=== PATIENT | female | born 1955 | race Caucasian/White ===

== ENCOUNTER 2020-12-28 23:22 | Inpatient (IN) ==
[2020-12-29] MEDS ORDERED: Naloxone 0.4 MG/ML INJ IVP PRN (01:59)
[2020-12-29] MEDS ORDERED: Melatonin 3 MG TABLET PO PRN (02:04)
[2020-12-29] MEDS ORDERED: 0.9 % Sodium Chloride 1,000 ML IVC ONE (02:46)
[2020-12-29] MEDS ORDERED: D5% in Water 1,000 ML IVC PRN (02:54)
[2020-12-29] MEDS ORDERED: *HR* Dextrose 50 % in Water (Vial) 50 ML VIAL IVP PRN (02:54)
[2020-12-29] MEDS ORDERED: Dextrose Gel 15 GM/37.5 ML TUBE PO PRN ×2 (02:54)
[2020-12-29] MEDS: Morphine Sulfate 2 MG/ML SYRINGE IVP PRN ×5 (03:39→22:49)
[2020-12-29] MEDS: Nicotine 21 MG PATCH.TD24 TD SCH ×2 (03:42→08:53)
[2020-12-29 03:45] LABS: Basophils # 0.1 K/mcL (0.0-0.2); Basophils % 0.5 %; Eosinophils # 0.4 K/mcL (0.0-0.6); Eosinophils % 3.9 %; Hemoglobin 13.7 g/dL (11.5-15.4); Immature Granulocytes % 0.4 % (0-4); Lymphocytes # 2.6 K/mcL (0.6-4.6); Lymphocytes % 25.2 %; Mean Corpuscular HGB Conc 34.3 g/dL (31.6-35.5); Mean Corpuscular Hemoglobin 32.4 pg (28.0-33.3); Mean Corpuscular Volume 94.6 fL (83.0-100.0); Mean Platelet Volume 10.9 fL (9.4-12.4); Monocytes # 0.9 K/mcL (0.0-1.3); Monocytes % 8.3 %; Neutrophils # 6.4 K/mcL (1.6-8.9); Platelet Count 252 K/mcL (140-400); Red Blood Count 4.23 M/mcL (3.82-4.97); Red Cell Distribution Width 13.2 % (11.5-14.5); Segmented Neutrophils % 61.7 %; White Blood Count 10.4 K/mcL (4.3-11.1)
[2020-12-29 03:51] LABS: INR 3.2; Prothrombin Time 35.7 Seconds (9.4-12.1)
[2020-12-29 03:54] LABS: Activated Partial Thrombo Time 42.8 Seconds (26.0-36.0)
[2020-12-29 04:00] LABS: Alanine Aminotransferase 16 Units/L (7-52); Albumin 4.1 g/dL (3.5-5.7); Albumin/Globulin Ratio 1.7 (1.1-2.2); Alkaline Phosphatase 47 Units/L (34-104); Aspartate Amino Transferase 17 Units/L (13-39); BUN/Creatinine Ratio 19 (6-26); Bilirubin,Total 0.3 mg/dL (0.3-1.0); Blood Urea Nitrogen 10 mg/dL (8-23); Calcium 8.8 mg/dL (8.6-10.3); Carbon Dioxide 27 mEq/L (23-29); Chloride 108 mEq/L (98-107); Globulin 2.4 g/dL (2.4-3.5); Glucose 93 mg/dL (70-105); Magnesium 1.5 mg/dL (1.6-2.6); Osmolality,Calculated 289 (280-300); Phosphorous 3.7 mg/dL (2.7-4.5); Potassium 3.9 mEq/L (3.5-5.1); Sodium 140 mEq/L (136-145); Total Protein 6.5 g/dL (6.4-8.9); eGFR For African Americans > 60 (> 60); eGFR For Non-African Americans > 60 (> 60)
[2020-12-29] MEDS: Insulin LISPRO 300 UNITS/3 ML VIAL SUBQ SCH ×3 (06:28→20:26)
[2020-12-29] MEDS ORDERED: *HR* Phytonadione 10 MG/ML AMPUL SQ ONE (08:30)
[2020-12-29] MEDS: MetroNIDAZOLE 500 MG/100 ML 500 MG/100 ML BAG IVPB SCH ×3 (11:08→23:31)
[2020-12-29] MEDS ORDERED: *HR* Heparin 5,000 UNIT/ML VIAL IVP PRN ×2 (12:52)
[2020-12-29] MEDS ORDERED: Heparin 25,000UNIT/250ML 1/2NS 25,000 UNIT/250 ML IV.SOLN IVC SCH (13:00)
[2020-12-29 13:25] LABS: Hematocrit 40.9 % (35.3-44.9); Hemoglobin 13.9 g/dL (11.5-15.4); Mean Corpuscular Hemoglobin 32.4 pg (28.0-33.3); Mean Corpuscular Volume 95.3 fL (83.0-100.0); Mean Platelet Volume 10.7 fL (9.4-12.4); Platelet Count 206 K/mcL (140-400); Red Blood Count 4.29 M/mcL (3.82-4.97); Red Cell Distribution Width 13.2 % (11.5-14.5); White Blood Count 8.5 K/mcL (4.3-11.1)
[2020-12-29 13:32] LABS: Heparin anti-factor XA UFH 0.04 IU/mL (0.30-0.70)
[2020-12-29 13:33] LABS: INR 2.3; Prothrombin Time 26.5 Seconds (9.4-12.1)
[2020-12-29] MEDS: Pyridoxine (B-6) 50 MG TABLET PO SCH (20:36)
[2020-12-29] MEDS: Budesonide/Formoterol 160/4.5 1 PUFF INH IH SCH (20:39)
[2020-12-29] MEDS ORDERED: Gabapentin 400 MG CAPSULE PO SCH (21:00)
[2020-12-29] MEDS: Ondansetron 4 MG/2 ML VIAL IVP PRN (22:06)
[2020-12-30 03:31] LABS: Heparin anti-factor XA UFH 0.4 IU/mL (0.30-0.70)
[2020-12-30 03:32] LABS: INR 1.7; Prothrombin Time 19.2 Seconds (9.4-12.1)
[2020-12-30] MEDS: Insulin LISPRO 300 UNITS/3 ML VIAL SUBQ SCH ×3 (03:41→18:24)
[2020-12-30 03:43] LABS: Alanine Aminotransferase 26 Units/L (7-52); Albumin 4.1 g/dL (3.5-5.7); Albumin/Globulin Ratio 1.7 (1.1-2.2); Alkaline Phosphatase 46 Units/L (34-104); Aspartate Amino Transferase 44 Units/L (13-39); BUN/Creatinine Ratio 14 (6-26); Bilirubin,Total 0.4 mg/dL (0.3-1.0); Blood Urea Nitrogen 8 mg/dL (8-23); Calcium 8.5 mg/dL (8.6-10.3); Carbon Dioxide 23 mEq/L (23-29); Chloride 106 mEq/L (98-107); Globulin 2.4 g/dL (2.4-3.5); Glucose 93 mg/dL (70-105); Magnesium 1.6 mg/dL (1.6-2.6); Osmolality,Calculated 282 (280-300); Potassium 4.2 mEq/L (3.5-5.1); Sodium 137 mEq/L (136-145); Total Protein 6.5 g/dL (6.4-8.9); eGFR For African Americans > 60 (> 60); eGFR For Non-African Americans > 60 (> 60)
[2020-12-30] MEDS: Budesonide/Formoterol 160/4.5 1 PUFF INH IH SCH ×2 (07:24→21:45)
[2020-12-30] MEDS: MetroNIDAZOLE 500 MG/100 ML 500 MG/100 ML BAG IVPB SCH ×3 (07:28→23:50)
[2020-12-30] MEDS ORDERED: Pregabalin 75 MG CAPSULE PO ONE ×2 (07:46→12:18)
[2020-12-30] MEDS ORDERED: *HR* Labetalol 20 MG/4 ML SYRINGE IVP PRN ×2 (07:46→12:18)
[2020-12-30] MEDS ORDERED: Acetaminophen IV 1,000 MG/100 ML BAG IVPB ONE ×3 (07:46→12:18)
[2020-12-30] MEDS ORDERED: *HR* OxyCODONE Immed Rel 5 MG TABLET PO PRN ×4 (07:46→13:20)
[2020-12-30] MEDS ORDERED: Famotidine 20 MG/2 ML VIAL IVP ONE ×2 (07:46→12:18)
[2020-12-30] MEDS ORDERED: Morphine Sulfate 2 MG/ML SYRINGE IVP PRN ×3 (07:47→12:18)
[2020-12-30] MEDS ORDERED: Lidocaine -MPF 4% 5 ML AMPUL ONE (08:20)
[2020-12-30] MEDS ORDERED: *HR* Midazolam HCl 2 MG/2 ML VIAL ONE (08:24)
[2020-12-30] MEDS ORDERED: *HR* FentaNYL (PF) 100 MCG/2 ML VIAL ONE (08:24)
[2020-12-30] MEDS ORDERED: *HR* Propofol 200 MG/20 ML VIAL IVP ONE (08:25)
[2020-12-30] MEDS ORDERED: Lidocaine -MPF 2% 2 ML VIAL ONE ×2 (08:26→08:30)
[2020-12-30] MEDS ORDERED: *HR* Succinylcholine 200 MG/10 ML VIAL IVP ONE (08:30)
[2020-12-30] MEDS ORDERED: *HR* Rocuronium Bromide 50 MG/5 ML VIAL ONE (08:30)
[2020-12-30] MEDS ORDERED: Ondansetron 4 MG/2 ML VIAL ONE (08:30)
[2020-12-30] MEDS ORDERED: Isovue-300 50ML VIAL ONE (08:47)
[2020-12-30] MEDS ORDERED: lisinopriL 5 MG TABLET PO SCH (09:00)
[2020-12-30] MEDS ORDERED: atenoloL 25 MG TABLET PO SCH (09:00)
[2020-12-30] MEDS ORDERED: Gabapentin 400 MG CAPSULE PO SCH ×2 (09:00→12:00)
[2020-12-30] MEDS ORDERED: Loratadine 10 MG TABLET PO SCH (09:00)
[2020-12-30] MEDS ORDERED: cefOXitin 1,000 MG, 0.9 % Sodium Chloride 1,000 ML IR ONE (09:00)
[2020-12-30] MEDS ORDERED: Famotidine 20 MG/2 ML VIAL ONE (09:12)
[2020-12-30] MEDS ORDERED: EPHEDrine 50 MG/ML VIAL ONE (09:40)
[2020-12-30] MEDS ORDERED: Sugammadex Sodium 200 MG/2 ML VIAL IV ONE (10:17)
[2020-12-30] MEDS ORDERED: Ringers Solution, Lactated 1,000 ML ONE (10:52)
[2020-12-30] MEDS: Ondansetron 4 MG/2 ML VIAL IVP PRN ×3 (11:11→23:45)
[2020-12-30] MEDS ORDERED: Ondansetron 4 MG/2 ML VIAL IVP PRN (12:18)
[2020-12-30] MEDS ORDERED: Dextrose Gel 15 GM/37.5 ML TUBE PO PRN ×2 (12:18)
[2020-12-30] MEDS ORDERED: *HR* Dextrose 50 % in Water (Vial) 50 ML VIAL IVP PRN (12:18)
[2020-12-30] MEDS ORDERED: Naloxone 0.4 MG/ML INJ IVP PRN (12:18)
[2020-12-30] MEDS ORDERED: D5% in Water 1,000 ML IVC PRN (12:18)
[2020-12-30] MEDS ORDERED: *HR* Heparin 5,000 UNIT/ML VIAL IVP PRN ×2 (12:18)
[2020-12-30] MEDS: Heparin 25,000UNIT/250ML 1/2NS 25,000 UNIT/250 ML IV.SOLN IVC SCH (13:19)
[2020-12-30] MEDS: Melatonin 3 MG TABLET PO PRN (21:08)
[2020-12-30] MEDS: Gabapentin 400 MG CAPSULE PO SCH (21:08)
[2020-12-30] MEDS: Pyridoxine (B-6) 50 MG TABLET PO SCH (21:10)
[2020-12-31] MEDS: Insulin LISPRO 300 UNITS/3 ML VIAL SUBQ SCH ×6 (01:07→19:28)
[2020-12-31 01:29] LABS: INR 1.5
[2020-12-31 01:30] LABS: Heparin anti-factor XA UFH 0.52 IU/mL (0.30-0.70)
[2020-12-31] MEDS: Budesonide/Formoterol 160/4.5 1 PUFF INH IH SCH ×2 (07:36→19:56)
[2020-12-31] MEDS: Aspirin Enteric Coated 81 MG Tablet PO SCH (08:54)
[2020-12-31] MEDS: Loratadine 10 MG TABLET PO SCH (08:54)
[2020-12-31] MEDS: Insulin DETEMIR 100 UNIT/ML X5UNITS SUBQ SCH (08:54)
[2020-12-31] MEDS: MetroNIDAZOLE 500 MG/100 ML 500 MG/100 ML BAG IVPB SCH (08:54)
[2020-12-31] MEDS: lisinopriL 5 MG TABLET PO SCH (08:55)
[2020-12-31] MEDS: Gabapentin 400 MG CAPSULE PO SCH ×3 (08:55→19:27)
[2020-12-31] MEDS: atenoloL 25 MG TABLET PO SCH (08:55)
[2020-12-31] MEDS: Pyridoxine (B-6) 50 MG TABLET PO SCH ×3 (08:55→19:27)
[2020-12-31] MEDS: Nicotine 21 MG PATCH.TD24 TD SCH (08:55)
[2020-12-31] MEDS: Heparin 25,000UNIT/250ML 1/2NS 25,000 UNIT/250 ML IV.SOLN IVC SCH (14:54)
[2020-12-31] MEDS ORDERED: 0.9 % Sodium Chloride 500 ML IV ONE (15:02)
[2020-12-31] MEDS ORDERED: 0.9 % Sodium Chloride 500 ML ONE (15:20)
[2020-12-31] MEDS ORDERED: *HR* Warfarin 4 MG TABLET PO ONE (18:00)
[2020-12-31] MEDS ORDERED: Warfarin perPT PO PRN (18:00)
[2020-12-31] MEDS ORDERED: *HR* Warfarin 5 MG TABLET PO ONE (18:00)
[2021-01-01 02:29] LABS: Heparin anti-factor XA UFH 0.35 IU/mL (0.30-0.70)
[2021-01-01 02:30] LABS: INR 1.4; Prothrombin Time 16.2 Seconds (9.4-12.1)
[2021-01-01 02:37] LABS: BUN/Creatinine Ratio 19 (6-26); Blood Urea Nitrogen 11 mg/dL (8-23); Calcium 8.2 mg/dL (8.6-10.3); Carbon Dioxide 23 mEq/L (23-29); Chloride 110 mEq/L (98-107); Glucose 204 mg/dL (70-105); Osmolality,Calculated 295 (280-300); Potassium 3.9 mEq/L (3.5-5.1); Sodium 140 mEq/L (136-145); eGFR For African Americans > 60 (> 60); eGFR For Non-African Americans > 60 (> 60)
[2021-01-01] MEDS: Insulin LISPRO 300 UNITS/3 ML VIAL SUBQ SCH ×4 (07:10→20:00)
[2021-01-01] MEDS: Budesonide/Formoterol 160/4.5 1 PUFF INH IH SCH ×2 (07:29→20:01)
[2021-01-01] MEDS: atenoloL 25 MG TABLET PO SCH (07:38)
[2021-01-01] MEDS: Loratadine 10 MG TABLET PO SCH (07:38)
[2021-01-01] MEDS: Aspirin Enteric Coated 81 MG Tablet PO SCH (07:38)
[2021-01-01] MEDS: Nicotine 21 MG PATCH.TD24 TD SCH (07:38)
[2021-01-01] MEDS: Gabapentin 400 MG CAPSULE PO SCH ×3 (07:38→20:24)
[2021-01-01] MEDS: lisinopriL 5 MG TABLET PO SCH (07:38)
[2021-01-01] MEDS: Insulin DETEMIR 100 UNIT/ML X5UNITS SUBQ SCH (07:39)
[2021-01-01] MEDS: Pyridoxine (B-6) 50 MG TABLET PO SCH ×2 (07:39→20:24)
[2021-01-01] MEDS: Heparin 25,000UNIT/250ML 1/2NS 25,000 UNIT/250 ML IV.SOLN IVC SCH (16:23)
[2021-01-01] MEDS ORDERED: *HR* Warfarin 5 MG TABLET PO ONE (18:00)
[2021-01-02 02:31] LABS: INR 1.3; Prothrombin Time 15.4 Seconds (9.4-12.1)
[2021-01-02] MEDS: Budesonide/Formoterol 160/4.5 1 PUFF INH IH SCH ×2 (07:29→19:53)
[2021-01-02] MEDS: Nicotine 21 MG PATCH.TD24 TD SCH (08:11)
[2021-01-02] MEDS: lisinopriL 5 MG TABLET PO SCH (08:12)
[2021-01-02] MEDS: Gabapentin 400 MG CAPSULE PO SCH ×3 (08:12→20:46)
[2021-01-02] MEDS: Pyridoxine (B-6) 50 MG TABLET PO SCH ×2 (08:13→20:46)
[2021-01-02] MEDS: Aspirin Enteric Coated 81 MG Tablet PO SCH (08:13)
[2021-01-02] MEDS: Loratadine 10 MG TABLET PO SCH (08:13)
[2021-01-02] MEDS: atenoloL 25 MG TABLET PO SCH (08:13)
[2021-01-02] MEDS: Insulin LISPRO 300 UNITS/3 ML VIAL SUBQ SCH ×4 (08:17→20:47)
[2021-01-02] MEDS: Insulin DETEMIR 100 UNIT/ML X5UNITS SUBQ SCH (09:10)
[2021-01-02 12:34] LABS: Basophils % 0.5 %; Eosinophils # 0.3 K/mcL (0.0-0.6); Eosinophils % 3.4 %; Hematocrit 38.2 % (35.3-44.9); Hemoglobin 12.7 g/dL (11.5-15.4); Immature Granulocytes % 0.5 % (0-4); Lymphocytes # 1.5 K/mcL (0.6-4.6); Lymphocytes % 19.1 %; Mean Corpuscular HGB Conc 33.2 g/dL (31.6-35.5); Mean Corpuscular Hemoglobin 31.9 pg (28.0-33.3); Mean Platelet Volume 10.9 fL (9.4-12.4); Monocytes # 0.8 K/mcL (0.0-1.3); Monocytes % 9.4 %; Neutrophils # 5.4 K/mcL (1.6-8.9); Platelet Count 225 K/mcL (140-400); Red Blood Count 3.98 M/mcL (3.82-4.97); Red Cell Distribution Width 13.2 % (11.5-14.5); Segmented Neutrophils % 67.1 %
[2021-01-02] MEDS ORDERED: *HR* Warfarin 7.5 MG TABLET PO ONE (18:00)
[2021-01-02] MEDS: Heparin 25,000UNIT/250ML 1/2NS 25,000 UNIT/250 ML IV.SOLN IVC SCH (18:14)
[2021-01-03 07:04] LABS: INR 1.6; Prothrombin Time 18.2 Seconds (9.4-12.1)
[2021-01-03] MEDS: Aspirin Enteric Coated 81 MG Tablet PO SCH (07:14)
[2021-01-03] MEDS: lisinopriL 5 MG TABLET PO SCH (07:14)
[2021-01-03] MEDS: Pyridoxine (B-6) 50 MG TABLET PO SCH ×2 (07:14→20:11)
[2021-01-03] MEDS: Gabapentin 400 MG CAPSULE PO SCH ×3 (07:14→20:10)
[2021-01-03] MEDS: atenoloL 25 MG TABLET PO SCH (07:14)
[2021-01-03] MEDS: Nicotine 21 MG PATCH.TD24 TD SCH (07:15)
[2021-01-03] MEDS: Loratadine 10 MG TABLET PO SCH (07:15)
[2021-01-03] MEDS: Insulin LISPRO 300 UNITS/3 ML VIAL SUBQ SCH ×4 (07:17→20:18)
[2021-01-03] MEDS: Budesonide/Formoterol 160/4.5 1 PUFF INH IH SCH ×2 (07:30→19:35)
[2021-01-03] MEDS: Insulin DETEMIR 100 UNIT/ML X5UNITS SUBQ SCH (07:43)
[2021-01-03] MEDS: polyethylene glycoL 3350 17 GM POWD.PACK PO SCH (08:45)
[2021-01-03] MEDS ORDERED: *HR* Warfarin 7.5 MG TABLET PO ONE (18:00)
[2021-01-03] MEDS: Melatonin 3 MG TABLET PO PRN (20:11)
[2021-01-03] MEDS: Heparin 25,000UNIT/250ML 1/2NS 25,000 UNIT/250 ML IV.SOLN IVC SCH (20:13)
[2021-01-04 03:11] LABS: Heparin anti-factor XA UFH 0.23 IU/mL (0.30-0.70)
[2021-01-04 04:05] LABS: INR 1.9; Prothrombin Time 21.6 Seconds (9.4-12.1)
[2021-01-04] MEDS: polyethylene glycoL 3350 17 GM POWD.PACK PO SCH (07:33)
[2021-01-04] MEDS: Aspirin Enteric Coated 81 MG Tablet PO SCH (07:33)
[2021-01-04] MEDS: lisinopriL 5 MG TABLET PO SCH (07:34)
[2021-01-04] MEDS: atenoloL 25 MG TABLET PO SCH (07:34)
[2021-01-04] MEDS: Loratadine 10 MG TABLET PO SCH (07:34)
[2021-01-04] MEDS: Nicotine 21 MG PATCH.TD24 TD SCH (07:34)
[2021-01-04] MEDS: Gabapentin 400 MG CAPSULE PO SCH ×3 (07:34→19:42)
[2021-01-04] MEDS: Pyridoxine (B-6) 50 MG TABLET PO SCH ×2 (07:37→19:43)
[2021-01-04] MEDS: Insulin LISPRO 300 UNITS/3 ML VIAL SUBQ SCH ×4 (07:38→20:54)
[2021-01-04] MEDS: Budesonide/Formoterol 160/4.5 1 PUFF INH IH SCH ×2 (08:14→19:31)
[2021-01-04] MEDS: Insulin DETEMIR 100 UNIT/ML X5UNITS SUBQ SCH (09:31)
[2021-01-04] MEDS ORDERED: *HR* Warfarin 5 MG TABLET PO ONE (18:00)
[2021-01-04] MEDS: Melatonin 3 MG TABLET PO PRN (19:43)
[2021-01-04] MEDS: Heparin 25,000UNIT/250ML 1/2NS 25,000 UNIT/250 ML IV.SOLN IVC SCH (19:43)
[2021-01-05 06:15] LABS: INR 2.7; Prothrombin Time 30.7 Seconds (9.4-12.1)
[2021-01-05] MEDS: Budesonide/Formoterol 160/4.5 1 PUFF INH IH SCH (07:50)
[2021-01-05] MEDS: Pyridoxine (B-6) 50 MG TABLET PO SCH (07:55)
[2021-01-05] MEDS: Aspirin Enteric Coated 81 MG Tablet PO SCH (07:55)
[2021-01-05] MEDS: Gabapentin 400 MG CAPSULE PO SCH (07:56)
[2021-01-05] MEDS: polyethylene glycoL 3350 17 GM POWD.PACK PO SCH (07:56)
[2021-01-05] MEDS: Nicotine 21 MG PATCH.TD24 TD SCH (07:56)
[2021-01-05] MEDS: Loratadine 10 MG TABLET PO SCH (07:56)
[2021-01-05] MEDS: Insulin LISPRO 300 UNITS/3 ML VIAL SUBQ SCH (07:59)
[2021-01-05] MEDS: atenoloL 25 MG TABLET PO SCH (07:59)
[2021-01-05] MEDS: lisinopriL 5 MG TABLET PO SCH (10:35)
[2021-01-05] MEDS ORDERED: *HR* Warfarin 5 MG TABLET PO ONE (18:00)
== END 2021-01-05 11:10 | disposition home or self-care (01) | DRG 263 ==
LOC: 3BNU → SUATTDRO 12-29 01:10
PROVIDERS: ADMIT Internal Medicine; ATTEND Internal Medicine